=== PATIENT | male | born 1995 | race Caucasian/White ===

== ENCOUNTER 2017-03-29 02:01 | Emergency (ER) | payer OTHER ==
[~2017-03-29] VITALS: Ht 180.3 cm; Wt 79.2 kg
[2017-03-29 02:02] VITALS: Ht 180.3 cm; Wt 79.2 kg
[2017-03-29] MEDS ORDERED: KETOROLAC TROMETHAMINE 30 MG/ML VIAL IV STA (02:28)
[2017-03-29 02:31] VITALS: O2SAT 96
[2017-03-29 02:40] LABS: BASO % 0.2 %; BASO ABS # 0.01 K/uL (0-0.2); COMPLETE YES; EOS % 2.2 %; HEMATOCRIT 42.5 % (42-52); LYMPH % 42.2 %; LYMPH ABS # 2.15 K/uL (1.2-3.4); MEAN CORPUSCULAR HEMOGLOBIN 29.2 pg (25-34); MEAN CORPUSCULAR HGB CONC 34.4 g/dl (32-36); MEAN PLATELET VOLUME 9.7 fL (7.4-10.4); MONO % 6.9 %; NEUT % 48.5 %; PLATELET COUNT 231 K/uL (130-400); WHITE BLOOD COUNT 5.09 K/uL (4.8-10.8)
[2017-03-29 02:50] LABS: POINT OF CARE TROPONIN I < 0.030 ng/ml (0-0.045)
[2017-03-29 02:57] LABS: BUN/CREATININE RATIO 13.1 (10-20); CREATININE 1.08 mg/dl (0.60-1.40); POTASSIUM 3.7 mmol/L (3.5-5.1)
[2017-03-29 03:08] LABS: ALB/GLOB RATIO 1.2 (0.9-2); THYROID STIMULATING HORMONE 3.18 uIu/ml (0.300-4.500)
[2017-03-29 04:27] VITALS: BP 103/62; PULSE 70; TEMP 36.4; O2SAT 97
--- NOTE | 2017-03-29 07:19 | DIAGNOSTIC IMAGING REPORT ---
TWO VIEW CHEST CLINICAL HISTORY: Atypical chest pain.. FINDINGS: PA and lateral chest radiographs are obtained. No prior studies are available for comparison at the time of dictation. The cardiomediastinal silhouette is unremarkable. The lungs and pleural spaces are clear. There is no pneumothorax. The bony thorax appears intact. IMPRESSION: No active disease in the chest. Electronically signed by: Jimi London M.D. 03/29/2017 7:17 AM Dictated Date/Time: 03/29/2017 7:17 AM
--- NOTE | 2017-03-29 22:01 | EMERGENCY ROOM VISIT NOTE ---
History First contact with patient: 02:07 Chief Complaint: CHEST PAIN Stated Complaint: CHEST PAIN Nursing Triage Summary: intermittent chest pain x a few days. History of Present Illness The patient is a 21 year old male who presents to the Emergency Room with complaints of sternal chest pain that began intermittently over the past 2-3 days. He states that his discomfort worsened this evening. He does not recall injury or trauma to explain his symptoms. He can reproduce some of the discomfort by pressing on his sternum. The patient does have recent travel history, as he flew home to [place] [place]. He returned to the [facility] a few days ago. The patient has not had fever or chills. No shortness of breath. The patient works out regularly and considers himself usually healthy. He rates his current discomfort a 4/10 without radiation. He has not taken anything [id number] for his discomfort. Review of Systems More than 10 systems were reviewed and otherwise negative with the exception of history of present illness. Past Medical/Surgical History Medical Problems: (1) No significant medical problems Surgical Problems: (1) No significant past surgical history Family History Cancer Diabetes mellitus Heart disease Social History Smoking Status: Never Smoker Alcohol Use: occasionally Marital Status: single Housing Status: lives with roommate Occupation Status: [employer] student Current/Historical Medications No Active Prescriptions or Reported Meds Physical Exam Vital Signs Date Time Temp Pulse Resp B/P (MAP) Pulse Ox O2 Delivery O2 Flow Rate FiO2 03/29/17 04:27 36.4 70 18 103/62 97 Room Air 03/29/17 03:00 60 18 104/60 03/29/17 02:31 96 Room Air 03/29/17 02:14 78 03/29/17 02:11 Room Air 03/29/17 02:02 36.6 72 20 108/72 97 Room Air Physical Exam VITALS: Vitals are noted on the nurse's note and reviewed by myself. Vital signs stable. GENERAL: Well-developed, well-nourished, white male, who is in no acute distress and resting comfortably. Patient is cooperative with the examination. NECK: Supple without nuchal rigidity. No lymphadenopathy. No thyromegaly. Cervical spine is nontender. HEART: Regular rate and rhythm without murmurs gallops or rubs. LUNGS: Clear to auscultation bilaterally without wheezes, rales or rhonchi. No retractions or accessory muscle use. CHEST WALL: There is mild tenderness along the superior aspect of the sternum. No rash in this area. No crepitus or flail chest. ABDOMEN: Positive normal bowel sounds x 4. Soft, nontender, without masses or organomegaly. No guarding or rebound tenderness. MUSCULOSKELETAL: No muscle atrophy, erythema, or edema noted. Tender areas. No palpable cords. Medical Decision & Procedures ER Provider Diagnostic Interpretation: TWO VIEW CHEST CLINICAL HISTORY: Atypical chest pain.. FINDINGS: PA and lateral chest radiographs are obtained. No prior studies are available for comparison at the time of dictation. The cardiomediastinal silhouette is unremarkable. The lungs and pleural spaces are clear. There is no pneumothorax. The bony thorax appears intact. IMPRESSION: No active disease in the chest. Laboratory Results 03/29/17 02:22 Red Blood Count 5.00, Mean Corpuscular Volume 85.0, Mean Corpuscular Hemoglobin 29.2, Mean Corpuscular Hemoglobin Concent 34.4, Mean Platelet Volume 9.7, Neutrophils (%) (Auto) 48.5, Lymphocytes (%) (Auto) 42.2, Monocytes (%) (Auto) 6.9, Eosinophils (%) (Auto) 2.2, Basophils (%) (Auto) 0.2, Neutrophils # (Auto) 2.47, Lymphocytes # (Auto) 2.15, Monocytes # (Auto) 0.35, Eosinophils # (Auto) 0.11, Basophils # (Auto) 0.01 03/29/17 02:22 Test 03/29/17 02:22 03/29/17 02:30 03/29/17 03:51 White Blood Count 5.09 K/uL (4.8-10.8) Red Blood Count 5.00 M/uL (4.7-6.1) Hemoglobin 14.6 g/dL (14.0-18.0) Hematocrit 42.5 % (42-52) Mean Corpuscular Volume 85.0 fL (80-100) Mean Corpuscular Hemoglobin 29.2 pg (25-34) Mean Corpuscular Hemoglobin Concent 34.4 g/dl (32-36) Platelet Count 231 K/uL (130-400) Mean Platelet Volume 9.7 fL (7.4-10.4) Neutrophils (%) (Auto) 48.5 % Lymphocytes (%) (Auto) 42.2 % Monocytes (%) (Auto) 6.9 % Eosinophils (%) (Auto) 2.2 % Basophils (%) (Auto) 0.2 % Neutrophils # (Auto) 2.47 K/uL (1.4-6.5) Lymphocytes # (Auto) 2.15 K/uL (1.2-3.4) Monocytes # (Auto) 0.35 K/uL (0.11-0.59) Eosinophils # (Auto) 0.11 K/uL (0-0.5) Basophils # (Auto) 0.01 K/uL (0-0.2) RDW Standard Deviation 36.3 fL (36.4-46.3) RDW Coefficient of Variation 11.8 % (11.5-14.5) Immature Granulocyte % (Auto) 0.0 % Immature Granulocyte # (Auto) 0.00 K/uL (0.00-0.02) Anion Gap 2.0 mmol/L (3-11) Est Creatinine Clear Calc Drug Dose 114.2 ml/min Estimated GFR () 112.3 Estimated GFR (Non- 96.9 BUN/Creatinine Ratio 13.1 (10-20) Calcium Level 8.0 mg/dl (8.5-10.1) Magnesium Level 2.0 mg/dl (1.8-2.4) Total Bilirubin 0.6 mg/dl (0.2-1) Aspartate Amino Transf (AST/SGOT) 14 U/L (15-37) Alanine Aminotransferase (ALT/SGPT) 22 U/L (12-78) Alkaline Phosphatase 46 U/L (45-117) Total Protein 5.9 gm/dl (6.4-8.2) Albumin 3.2 gm/dl (3.4-5.0) Globulin 2.7 gm/dl (2.5-4.0) Albumin/Globulin Ratio 1.2 (0.9-2) Lipase 94 U/L (73-393) Thyroid Stimulating Hormone (TSH) 3.180 uIu/ml (0.300-4.500) Bedside D-Dimer 51 ng/mlFEU (0-450) Bedside Troponin I < 0.030 ng/ml (0-0.045) Medications Administered Medications (Trade) Dose Ordered Sig/Helga Route Start Time Stop Time Status Last Admin Dose Admin Ketorolac Tromethamine (Toradol Inj) 30 mg NOW STAT IV 03/29/17 02:28 03/29/17 02:30 DC 03/29/17 02:34 30 MG ECG Change: Normal sinus rhythm with sinus arrhythmia @63bpm Normal ECG No previous ECGs available Confirmed by KATY MARIE ([id number]) on 03/29/2017 2:58:29 PM ED Course Physical exam and history were performed. Nursing notes, EMR, and Medication List were personally reviewed. Patient appears to have chest pain symptoms for the past few days. He does have a recent travel history. The patient may have some reproducible component to his pain. IV access was established and labs were obtained. The patient was given IV Toradol for comfort. X-rays were performed. EKG was normal sinus rhythm as above. I discussed the case with my attending physician, Dr. Reece, who remained involved in patient care and decision making. The patient's blood work is as above was reviewed. He does not have a significantly elevated white blood cell count, gross anemia, bandemia, or significant electrolyte imbalance. Troponin 2 is negative. D-dimer test was negative. Chest x-ray does not show acute findings. 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 On reevaluation the patient did not have any worsening of his symptoms. He did feel improved, and is felt to be well for discharge home. I suspect a musculoskeletal component to his pain, but he should still follow with [facility] for further care and management. He is otherwise welcome back to the ER with any new, worsening, or concerning symptoms. The chart was completed utilizing [employer] Speech Voice Recognition Software. Grammatical errors, random word insertions, pronoun errors, and incomplete sentences are an occasional consequence of this system due to software limitations, ambient noise, and hardware issues. Any formal questions or concerns about the content, text, or information contained within the body of this dictation should be directly addressed to the provider for clarification. . Medical Decision Differential diagnosis includes, but is not limited to: Myocardial infarction, dysrhythmia, pericarditis, pneumothorax, aortic aneurysm/dissection, DVT/PE, anxiety, GERD, PUD, electrolyte imbalance, thyroid disorder, pneumonia, bronchitis, pancreatitis, and others Impression Primary Impression: Central chest pain Departure Information Dispostion Home / Self-Care Condition GOOD Prescriptions No Active Prescriptions or Reported Meds Forms HOME CARE DOCUMENTATION FORM, IMPORTANT VISIT INFORMATION Patient Instructions My [facility] Additional Instructions You were seen and evaluated today on an emergency basis only. This is not a substitute for, or an effort to provide, complete comprehensive medical care. It is not possible to recognize and treat all injuries or illnesses in a single emergency department visit. For this reason it is recommended that you followup with your primary care physician/[facility] this week for ongoing care and evaluation. Drink plenty of fluids and remain well-hydrated. For baseline pain relief you may alternate ibuprofen and acetaminophen every 4 hours for pain control. Take 600 mg ibuprofen (Advil) and then 4 hours later take 1000 mg acetaminophen (Tylenol). Do not take more than 3000 mg acetaminophen in a single day. You are welcome to return to the emergency department anytime with new, worsening, or concerning symptoms.
== END 2017-03-29 04:40 | disposition home or self-care (01) ==
LOC: C.EDB 02:02
DX: R07.9 Chest pain, unspecified (principal); Z83.3 Family history of diabetes mellitus

== ENCOUNTER 2017-05-29 23:38 | Emergency (ER) | payer BC, OTHER ==
[~2017-05-29] VITALS: Ht 180.3 cm; Wt 79.7 kg
[2017-05-29 23:47] VITALS: BP 137/91; PULSE 84; TEMP 37; O2SAT 98; Ht 180.3 cm; Wt 79.7 kg
[2017-05-30] MEDS ORDERED: IBUPROFEN 600 MG TAB PO STA (00:07)
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
== END 2017-05-30 01:20 | disposition home or self-care (01) ==
LOC: C.EDB 23:39
DX: S09.90XA Unspecified injury of head, initial encounter (principal); M54.9 Dorsalgia, unspecified; Y04.0XXA Assault by unarmed brawl or fight, initial encounter; Z79.899 Other long term (current) drug therapy; F90.9 Attention-deficit hyperactivity disorder, unspecified type